=== PATIENT | male | born 1945 | race Caucasian/White ===

== ENCOUNTER 2018-08-13 21:32 | Emergency (ER) | payer OTHER ==
[2018-08-13] MEDS ORDERED: ACETAMINOPHEN 500 MG TAB PO ONE (23:21)
[2018-08-13] MEDS ORDERED: NS 1,000 ML IV ONE (23:21)
--- NOTE | 2018-08-13 23:22 | EDPHY ---
H & P Stated Complaint: COUGH/PHLEGM, FEVER SINCE Time Seen by Provider: 08/13/18 23:22 HPI/ROS: HPI CHIEF COMPLAINT: Fever, shortness of breath, increasing cough, productive sputum. HISTORY OF PRESENT ILLNESS: This is a 73-year-old male who presents emergency room by private vehicle for cough and feeling ill since Tuesday. He states on Tuesday he started developing a productive cough with grayish sputum. No blood. Also developed chills and fever T-max of a 103 degrees tonight. Denies chest pain. To take his temperature at home has T-max of 103 degrees. Increasing cough. Past Medical History: hyperlipidemia and anxiety Past Surgical History: Hip surgery Social History: Denies drugs alcohol tobacco. Family History: Noncontributory ROS REVIEW OF SYSTEMS: 10 Systems were reviewed and negative with the exception of the elements mentioned in the history of present illness. Exam Constitutional elderly, nontoxic triage nursing summary reviewed, vital signs reviewed, awake/alert. Febrile to 39.3 upon arrival. Eyes normal conjunctivae and sclera, EOMI, PERRLA. HENT normal inspection, atraumatic, moist mucus membranes, no epistaxis, neck supple/ no meningismus, no raccoon eyes. Respiratory faint wheezing bilaterally, bronchitic cough on exam Cardiovascular rate normal, regular rhythm, no murmur, no edema, distal pulses normal. Gastrointestinal soft, non-tender, no rebound, no guarding, normal bowel sounds, no distension, no pulsatile mass. Genitourinary no CVA tenderness. Musculoskeletal no midline vertebral tenderness, full range of motion, no calf swelling, no tenderness of extremities, no meningismus, good pulses, neurovascularly intact. Skin pink, warm, & dry, no rash, skin atraumatic. Neurologic awake, alert and oriented x 3, AAOx3, moves all 4 extremities equally, motor intact, sensory intact, CN II-XII intact, normal cerebellar, normal vision, normal speech. Psychiatric normal mood/affect. Heme/Lymph/Immune no lymphadenopathy. Differential Diagnosis: Includes but is not limited to in a particular order acute febrile illness, viral syndrome, pneumonia, bacterial pneumonia, viral pneumonia, sepsis, bacteremia, influenza Medical Decision Making: Plan for this patient patient here with a temperature of a 103 degrees, cough with grayish sputum, concerning for pneumonia. Plan for blood draw, blood cultures, IV fluid bolus, lactic acid, chest x-ray and re- evaluate. Re-evaluation: 1256: Patient's chest x-ray reviewed by myself. Slight haziness left lower lobe. Patient here with fever, and cough with productive sputum. Blood cultures have been sent. Patient feeling better after 1 g of Tylenol IV fluids. Given patient's cough, and fever ankle rather clear chest x-ray D-dimer was sent this is positive. Updated patient about as he agrees for CT angiogram of the chest due to positive D-dimer cough, fever. Plan for CT angiogram chest rule out PE and help identify possible underlying lung process. CT scan angiogram of the chest fax me by direct Radiology 2:45 a.m., shows no evidence of pulmonary embolism however this peribronchial thickening in the lower lobes and small infiltrates or atelectasis. Consider bronchitis bronchopneumonia. Patient CT angiogram concerning for bronchopneumonia. IV Levaquin ordered. Given the patient's fever of 39.3, bronchial pneumonia on CT scan plan will be for hospital admission today. IV Levaquin has been ordered. Blood cultures pending. Patient agrees for admission. Will consult the hospitalist service. Dr. Bingham, Agrees for admission . 5:00 a.m. After further discussion with the patient as well as the hospitalist service the patient would rather go home is declining hospital admission. His blood cultures are pending. He is hemodynamically stable no acute distress. It is noted Patient's current vitals blood pressure 111/65, heart rate 73, pulse ox 95% on room air. He does feel much better after IV fluids and Tylenol. He did receive IV Levaquin here in the emergency room. Given that he wants to go home and rather not be admitted the hospital I did discussed return precautions with him he understands return emergency room if develops high fever, rigors, vomiting, not doing well. I do recommend he continues antibiotics. Additionally recommend alternates Tylenol Motrin for fever pain control. Additionally understands drink lots of fluids stay well-hydrated and rest. Patient additionally reports to me that he is able to tolerate as throw mycin and has done so in the past without any difficulty. Plan for patient going home. Recommend he rest, stay well-hydrated drink lots of fluids alternate Tylenol Motrin for fever and pain control. Albuterol inhaler 2 puffs every 4 hr as needed for cough and shortness of breath, azithromycin. Close follow-up with his primary care doctor and return if worse. Again I did offer him hospital admission however he declines this and would rather go home. 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, hypothyroid, hyperlipidemia - Social History Smoking Status: Former smoker Constitutional: Initial Vital Signs Temperature (C) 39.3 C H 08/13/18 21:58 Heart Rate 97 08/13/18 21:58 Respiratory Rate 18 08/13/18 21:58 Blood Pressure 155/80 H 08/13/18 21:58 O2 Sat (%) 92 08/13/18 21:58 O2 Delivery Mode Room Air Allergies/Adverse Reactions: erythromycin base [Erythromycin Base] Allergy (Intermediate, Verified 08/22/15 10:09) Rash Home Medications: Medication Instructions Recorded Atorvastatin Calcium [Lipitor 20 10 mg PO DAILY 08/06/15 mg (*)] Azithromycin [Zithromax] 250 mg PO DAILY #6 tab 08/14/18 Medical Decision Making - Data Points Laboratory Results: Laboratory Results 08/13/18 23:30 08/13/18 23:30 Microbiology Results: MICROBIOLOGY 08/13/18 23:40 Nasal, Sinus - Swab Respiratory Panel (PCR) - Final Human Metapneumovirus Detected Medications Given: Discontinued Medications Acetaminophen (Tylenol) 1,000 mg PO EDNOW ONE Stop: 08/13/18 23:22 Last Admin: 08/13/18 23:33 Dose: 1,000 mg Albuterol Sulfate (Proventil Inh Prepack) 1 mdi TAKEHOME EDNOW ONE Stop: 08/14/18 05:16 Last Admin: 08/14/18 05:16 Dose: 1 mdi Sodium Chloride (Ns) 1,000 mls @ 0 mls/hr IV EDNOW ONE; Wide Open PRN Reason: Protocol Stop: 08/13/18 23:22 Last Admin: 08/13/18 23:32 Dose: 1,000 mls Levofloxacin/Dextrose (Levaquin 750 Mg (Premix)) 150 mls @ 100 mls/hr IV EDNOW ONE PRN Reason: Protocol Stop: 08/14/18 04:47 Last Admin: 08/14/18 03:32 Dose: 150 mls Departure - Departure Disposition: Home, Routine, Self-Care Clinical Impression: Fever, Cough, Pneumonia Condition: Good Instructions: Fever in Adults (ED), Pneumonia (ED) Additional Instructions: 1. Make sure to rest and drink lots of fluids stay well-hydrated 2. Take antibiotics as prescribed 3. Return to the emergency room if there is worsening symptoms includes worsening shortness of breath, high fever, vomiting, not doing well. 4. Albuterol inhaler 2 puffs as needed every 4 hr. 5. Close follow-up with your primary care doctor. Referrals: Ronnie Tierney MD [Primary Care Provider] - As per Instructions Prescriptions: Azithromycin [Zithromax] 250 mg PO DAILY #6 tab
[2018-08-13 23:44] LABS: PLATELET COUNT 158 10^3/uL (150-400)
[2018-08-14] MEDS ORDERED: IOPAMIDOL (ISOVUE 370) 100 ML BTL IV ONE (01:08)
[2018-08-14] MEDS ORDERED: ONDANSETRON DISINTEGRATING 4 MG TAB PO PRN (04:42)
[2018-08-14] MEDS ORDERED: ALBUTEROL 3 ML DEYVIAL IH PRN (04:42)
[2018-08-14] MEDS ORDERED: ONDANSETRON 4 MG/2 ML VIAL IVP PRN (04:42)
[2018-08-14] MEDS ORDERED: ACETAMINOPHEN 325 MG TAB PO PRN (04:42)
[2018-08-14 05:02] VITALS: BP 134/69
[2018-08-14] MEDS ORDERED: ALBUTEROL INH PREPACK MDI TAKEHOME ONE ×2 (05:13→05:15)
[2018-08-14] MEDS ORDERED: ENOXAPARIN 40 MG/0.4 ML SYR SC SCH (09:00)
== END 2018-08-14 05:24 | disposition home or self-care (01) ==
LOC: UNDOADMOB 08-14 04:39
DX: J18.9 Pneumonia, unspecified organism (principal); E78.5 Hyperlipidemia, unspecified; F41.9 Anxiety disorder, unspecified
CPT/HCPCS: 71045; 71275; 96361; 96365; 99285; J1956; Q9967